=== PATIENT | male | born 1980 | race Caucasian/White ===

== ENCOUNTER 2023-12-12 19:41 | Inpatient (IN) | payer BC, SELFPAY ==
[2023-12-12] VITALS (22 sets, daily range): BP systolic 151–195; BP diastolic 96–118; PULSE 90–122; RESP 15–22; TEMP 36.4–38; O2SAT 92–96
--- NOTE | 2023-12-12 19:45 | DI.CT_ITS ---
Exam(s) CT ABDOMEN PELVIS W EXAM: CT ABDOMEN PELVIS W CLINICAL HISTORY: epigastric/RUQ pain. TECHNIQUE: Imaging Protocol: Axial computed tomography images with coronal and sagittal reformatted images were created and reviewed CONTRAST MATERIAL: Intravenous: Omnipaque-350 100cc Oral: None COMPARISON: No exams were available for comparison FINDINGS: VISUALIZED LUNG BASES: No nodules nor pleural effusions evident. ABDOMEN: LIVER: There is slightly prominent in size and is hypodense implying steatosis. There no discrete fo blessing hepatic lesions. No dilated intrahepatic ducts. GALLBLADDER/BILIARY: The gallbladder is distended and exhibits some mural thickening suggestive of ch olecystitis. There are no radiopaque calculi seen in the gallbladder lumen nor in the nondilated CBD . PANCREAS: No evidence of pancreatic mass nor dilatation of the pancreatic duct. SPLEEN: Spleen is not enlarged. No obvious intrasplenic lesions. Splenic and portal veins are paten t. ADRENALS: There are no significant adrenal masses. KIDNEYS:There are 3 small benign cortical cysts in the right kidney all measuring less than 1 cm. No solid renal masses. No calculi. No hydronephrosis on either side. Ureters are not dilated. No ob vious abnormality in the urinary bladder.. ABDOMINAL AORTA: Abdominal aorta is not enlarged. LYMPH NODES:There is no retroperitoneal nor paraaortic adenopathy. ABDOMINAL WALL: No evidence of significant anterior abdominal wall nor inguinal hernia. GI: There is no evidence of bowel obstruction, free air, nor abscess. PELVIS: GI: No evidence of appendicitis.No evidence of sigmoid diverticulitis. LYMPH NODES: There is no intrapelvic nor inguinal adenopathy. REPRODUCTIVE: Prostate size normal. Seminal vesicles unremarkable. URINARY BLADDER: No calculi nor obvious masses evident . FLUID: There is a small amount of free fluid in the dependent aspect of the pelvis. OSSEOUS: No fractures and no significant osseous lesions. IMPRESSION: 1. Gallbladder is distended and edematous consistent with acute cholecystitis. No obvious calcified gallstones seen in the gallbladder lumen nor in the CBD and the CBD is not dilated. Recommend follow -up gallbladder ultrasound. 2. There is a small amount of abnormal free fluid in the pelvis in this male patient, without evidenc e of appendicitis nor diverticulitis nor bowel obstruction.. Suspect that this may be related to the gallbladder pathology. RADIATION DOSE DELIVERED: 1,530.26mGy.cm Total DLP DATA REPOSITORY: All CT scans at this facility are submitted to the National Radiology Data Registry (NRDR) Dose Index Registry (DIR) with the [employer] (ACR). RADIATION OPTIMIZATION: All CT scans at this facility use at least one of these dose optimization te chniques: automated exposure control; mA and/or kV adjustment per patient size (includes targeted exa ms where dose is matched to clinical indication); or iterative reconstruction.
--- NOTE | 2023-12-12 19:51 | ED.GENADUL_ITS ---
Discharge Plan Disposition Patient Disposition: Admit to [facility] Condition: Stable Discharge Details Clinical Impression: Acute cholecystitis Primary Care Provider: None,None ED Provider: José Luis Lockwood [facility] General Date/Time Provider Initiated Documentation: 12/12/23 19:48 . HPI Narrative: 43 year-old male presents to ED today by POV/ambulating with his parents with a chief complaint of severe RUQ/epigastric abdominal pain, nausea/vomiting, seen at [facility] today, sent to ED, with onset two days ago. Quality described as severe tight upper abdominal pain, no radiation to active vomiting- did receive Zofran and IVF at [facility], endorses chills/sweats, denies cough/URI, denies black/bloody stools, is passing gas, denies hematemesis. Severity is described as 8/10. Palliating factors include zofran at [facility]. Provoking factors include nothing specific. Events leading up to the incident/Associated Symptoms: Patient denies prior abdominal surgery. Patient not anticoagulated. Related Data Allergies Allergy/AdvReac Type Severity Reaction Status Date / Time No Known Drug Allergies Allergy Mild Other (See Unverified 12/12/23 20:06 Comment) General Stated Complaint: Abd Prob SUHA: 3 Review of Systems All systems reviewed & are unremarkable except as noted in HPI and below Exam Narrative Exam Narrative: GENERAL APPEARANCE: Well-nourished, toxic, awake and alert, atraumatic, moderate acute distress. SKIN: Warm, pink, dry, intact, without rashes/lesions/ulcerations. HEAD: Normocephalic, atraumatic, normal hair distribution for gender/age. EYES: Pupils PERRLA, EOMs intact without nystagmus, normal conjunctiva, no exudates on lids/lashes. ENT: Nares patent, no circumoral cyanosis, no facial swelling NECK: Supple, trachea midline, painless cervical ROM. LUNGS/CHEST: Lungs CTA bilaterally-no rhonchi/rales/wheezes diffusely, non- labored respirations, normal A/P diameter, symmetrical expansion, no chest wall deformity HEART (CV/PV): Regular rate and rhythm- tachycardic without murmur, no peripheral edema, no JVD. ABDOMEN: Soft, non-distended, +guarding, right upper quadrant and epigastric tenderness with positive Krishnamurthy sign, no Rovsing's, no McBurney's point tenderness. MSK: Normal ROM, no swelling/deformity to bilateral UEs or LEs, moving all extremities without weakness, no cyanosis, spine midline without tenderness, normal curvature. NEURO: Mental Status AAOx4 - alert to person, place, time, events No facial droop, no forehead involvement. Motor: No focal weakness - strength 5/5 in bilateral UEs and LEs, proximal and distal, symmetric. Sensory: sensation intact to light touch globally. Gait normal: patient ambulated without ataxia into ED room. PSYCH: euthymic, cooperative, pleasant, appropriate speech Course Vital Signs Vital signs: Vital Signs Temperature 36.4 C 12/12/23 19:44 Pulse 122 H 12/12/23 19:44 Respiratory Rate 15 12/12/23 19:44 Blood Pressure 151/105 H 12/12/23 19:44 Pulse Oximetry 96 12/12/23 19:44 Temperature 36.4 C 12/12/23 19:47 Temperature Source Temporal Artery Scan 12/12/23 19:47 Pulse 122 H 12/12/23 19:47 Respiratory Rate 15 12/12/23 19:47 Respiratory Effort Normal 12/12/23 19:47 Blood Pressure 151/105 H 12/12/23 19:47 Blood Pressure Position Sitting 12/12/23 19:47 Pulse Oximetry 96 12/12/23 19:47 Oxygen Delivery Method Room Air 12/12/23 19:47 Oxygen Flow Rate 0 12/12/23 19:47 Pain Level 7 12/12/23 19:47 Medical Decision Making This dictation utilizes [id number] dictation software and may contain unedited grammatical errors. 43 y/o M presents to ED today with a chief complaint of two day onset of severe epigastric/abdominal pain, nausea/vomiting, tachycardia. Patient endorses chills/sweats. Patient takes no baseline medications, and denies any history of abdominal surgeries. Patients' medical history: Negative, otherwise healthy. Family and social history: Lives with his parents. Pertinent exam findings / vital signs include severe epigastric/right upper quadrant tenderness, positive Krishnamurthy sign, no Rovsing's, tachycardic, lungs CTA, toxic vital signs, neuro intact. Differential / pathologies of concern include gallstone pancreatitis, cholangitis, choledocholithiasis, sepsis, gastritis, SBO, perforated viscus, pancreatitis, hepatitis. Diagnostic studies of: -CBC, BMP, liver panel, CRP/ESR, lactate, procalcitonin, lipase, magnesium, troponin, CT abdomen pelvis with contrast, blood cultures, urinalysis. -CBC shows leukocytosis of 24 -Lactate 1.9, procalcitonin 0.4 - likely sepsis -Liver Panel shows bilirubin of 5.0, conjugated 1.8, ALT 137, AST 159 -CRP 10.9 -Lipase WNL -CT shows acute cholecystitis - clarifying by phone the measurement of CBD due to significantly elevated bilirubin -V rad radiologist states 4 mm with no radiopaque stones, discussed with Dr. Schuler of general surgery, will likely perform MRCP tomorrow morning, likely cholecystectomy. Interventions of: -IVF, IV APAP, IV Ketorlac, IV Zosyn. ED Course/Assessment/Plan: 43-year-old male with no major medical history presents with severe sudden onset epigastric right upper quadrant tenderness with nausea and vomiting, seen at [facility], given 1 L of fluids there, CT shows acute cholecystitis, he does have bilirubin of 5.0 and conjugated bilirubin of 1.8 but no radiopaque stone seen in the common bile duct and no dilatation seen. I discussed with general surgery Dr. Schuler who admitted the patient, will likely perform MRCP in the morning. Patient's pain was well-controlled with IV Tylenol and Toradol here in the department, I loaded him with IV Zosyn. Findings not consistent with primary biliary cholangitis, choledocholithiasis. Disposition of acute cholecystitis. Patient verbalized understanding of the plan and return to ED criteria and engaged in shared decision making. Medical Records Medical records reviewed: Yes I reviewed the patient's medical records. Medical records narrative: No records in our EMR or External [place] Records Search Imaging Data Radiologic Study: Attestation: I personally reviewed and interpreted this imaging study as follows: Imaging: CT Scan Radiologist's impression: Exam(s) Addendum created by Tiago Severino MD on 12/12/2023 9:48:27 PM EDT: Common bile duct is difficult to visualize as it is nondilated but measures approximately 4 mm in greatest diameter. Findings were discussed with JOSÉ LUIS LOCKWOOD at 12/12/2023 9:48 PM EDT. Initial report created on 12/12/2023 9:35:30 PM EDT: PROCEDURE INFORMATION: Exam: CT Abdomen And Pelvis With Contrast Exam date and time: 12/12/2023 8:55 PM Age: 43 years old Clinical indication: Abdominal pain; Epigastric TECHNIQUE: Imaging protocol: Computed tomography of the abdomen and pelvis with contrast. Contrast material: OMNIPAQUE 350; Contrast volume: 100 ml; Contrast route: INTRAVENOUS (IV); COMPARISON: No relevant prior studies available. FINDINGS: Liver: Liver is diffusely fatty but otherwise unremarkable. Gallbladder and bile ducts: Gallbladder is distended with diffuse gallbladder wall thickening suggesting acute cholecystitis. No calcified gallstones or significant biliary ductal dilation evident. Pancreas: Normal. No ductal dilation. Spleen: Normal. No splenomegaly. Adrenal glands: Normal. No mass. Kidneys and ureters: Small right renal cortical cysts noted and appears simple. Left kidney is unremarkable. No hydronephrosis. Stomach and bowel: Unremarkable. No obstruction. No mucosal thickening. Appendix: The appendix is visualized and appears normal. Intraperitoneal space: Unremarkable. No free air. No significant fluid collection. Vasculature: Unremarkable. No abdominal aortic aneurysm. Lymph nodes: Unremarkable. No enlarged lymph nodes. Urinary bladder: Unremarkable as visualized. Reproductive: Unremarkable as visualized. Bones/joints: Mild degenerative changes of the lumbar spine and sacroiliac joints. No acute fracture. Soft tissues: Unremarkable. IMPRESSION: Findings suggesting acute cholecystitis. Dictated and Authenticated by: Tiago Severino MD. Ordering:BRENT Ordonez MD Lab Data Lab results reviewed: Yes I reviewed the patient's lab results. Labs: 12/12/23 21:18 Blood Blood Culture - Pending 12/12/23 20:15 Blood Blood Culture - Pending Laboratory Tests Range/Units 12/12/23 20:05 WBC (4.4-10.8) 10^3/uL 23.83 H RBC (4.36-5.78) 10^6/uL 6.01 H Hgb (13.5-17.5) g/dL 17.4 Hct (40.0-50.0) % 50.9 H MCV (80-95) fL 85 MCH (27.0-33.0) pg 29.0 MCHC (32.0-36.0) % 34.2 RDW (11.8-14.1) % 13.3 Plt Count (130-400) 10^3/uL 387 MPV (8.0-11.0) fL 10.6 Immature Gran % % 0.5 Neutrophils % % 85.3 Lymphocytes % % 6.7 Monocytes % % 7.0 Eosinophils % % 0.0 Basophils % % 0.5 Nucleated RBC % (0.0-0.3) % 0.0 Absolute Neutrophils (1.2-6.7) 10^3/uL 20.33 H Absolute Lymphocytes (1.2-3.4) 10^3/uL 1.60 Absolute Monocytes (0.1-0.8) 10^3/uL 1.67 H Absolute Eosinophils (0.0-0.7) 10^3/uL 0.00 Absolute Basophils (0.0-0.2) 10^3/uL 0.12 RBC Morphology Normal VBG Lactate (0.6-1.4) mmol/L 1.9 H Sodium (136-145) mmol/L 137 Potassium (3.5-5.1) mmol/L 3.7 Chloride (98-107) mmol/L 100 Carbon Dioxide (21.0-32.0) mmol/L 25.0 Anion Gap (3-11) mmol/L 12.0 H BUN (7-18) mg/dL 13 Creatinine (0.70-1.30) mg/dL 1.2 Est GFR (CKD-EPI 2020) (mL/min/1.73m2) 76.00 Glucose (74-106) mg/dL 151 H Calcium (8.5-10.1) mg/dL 9.0 Magnesium (1.8-2.4) mg/dL 1.6 L Total Bilirubin (0.2-1.0) mg/dL 5.0 H Conjugated Bilirubin (0.0-0.2) mg/dL 1.8 H AST (15-37) U/L 159 H ALT (16-63) U/L 137 H Alkaline Phosphatase (46-116) U/L 115 Troponin I (< or =60) ng/L < 50 C-Reactive Protein (<or=0.5) mg/dL 10.94 H Total Protein (6.4-8.2) g/dL 9.0 H Albumin (3.4-5.0) g/dL 4.1 Lipase (16-77) U/L 27 Procalcitonin ng/mL 0.4 Quality:SDOH Health Related Social Needs: No Data to Display PFSH All Active Problems (Updated 12/12/23 @ 21:51 by ZUNILDA Linder) Acute cholecystitis (Acute) Social History Smoking risk assessment performed?: No
[2023-12-12 20:12] LABS: Lactate 1.9 mmol/L (0.6-1.4)
[2023-12-12 20:13] LABS: Abs Immature Grans 0.11 10^3/uL (0.0-0.06); Basophils % 0.5 %; HCT 50.9 % (40.0-50.0); HGB 17.4 g/dL (13.5-17.5); Immature Grans % 0.5 %; Lymphocytes % 6.7 %; MCHC 34.2 % (32.0-36.0); MCV 85 fL (80-95); MPV 10.6 fL (8.0-11.0); Neutrophils % 85.3 %; Platelet Count 387 10^3/uL (130-400); RBC 6.01 10^6/uL (4.36-5.78); RDW 13.3 % (11.8-14.1); RDW-SD 41.2 fL; WBC 23.83 10^3/uL (4.4-10.8)
[2023-12-12] MEDS: ACETAMINOPHEN 1,000 MG/100 ML BTL 400 MG IVPB (20:15)
[2023-12-12 20:16] LABS: Absolute Basophil Count 0.12 10^3/uL (0.0-0.2); Absolute Monocyte Count 1.67 10^3/uL (0.1-0.8); Absolute Neutrophil Count 20.33 10^3/uL (1.2-6.7)
[2023-12-12] MEDS: Ketorolac 15 MG/ML VIAL IVP (20:16)
[2023-12-12 20:28] LABS: Diff Comment Diff Reviewed; RBC Morphology Normal
[2023-12-12 20:35] LABS: C-Reactive Protein 10.94 mg/dL (<or=0.5); Lipase 27 U/L (16-77); Troponin I < 50 ng/L (< or =60)
[2023-12-12 20:40] LABS: ALT 137 U/L (16-63); AST 159 U/L (15-37); Albumin 4.1 g/dL (3.4-5.0); Alkaline Phosphatase 115 U/L (46-116); BUN 13 mg/dL (7-18); Bilirubin, Direct 1.8 mg/dL (0.0-0.2); CREATININE 1.2 mg/dL (0.70-1.30); Chloride 100 mmol/L (98-107); Glucose 151 mg/dL (74-106); Magnesium 1.6 mg/dL (1.8-2.4); Potassium 3.7 mmol/L (3.5-5.1); Sodium 137 mmol/L (136-145)
[2023-12-12] MEDS: Omnipaque 350 MG/ML 100 ML BTL IJ (20:41)
[2023-12-12] MEDS: Normal Saline Flush 10 ML SYR IVP (20:42)
[2023-12-12] MEDS: Normal Saline - Diluent 50 ML VIAL IJ (20:42)
[2023-12-12 20:45] LABS: Procalcitonin 0.4 ng/mL
[2023-12-12] MEDS: Normal Saline 1,000 ML 1000 ML IV ×2 (20:54→21:55)
--- NOTE | 2023-12-12 21:36 | DI.VRAD_ITS ---
Addendum created by Tiago Severino MD on 12/12/2023 9:48:27 PM EDT: Common bile duct is difficult to visualize as it is nondilated but measures approximately 4 mm in greatest diameter. Findings were discussed with MARY LOCKWOOD at 12/12/2023 9:48 PM EDT. Initial report created on 12/12/2023 9:35:30 PM EDT: PROCEDURE INFORMATION: Exam: CT Abdomen And Pelvis With Contrast Exam date and time: 12/12/2023 8:55 PM Age: 43 years old Clinical indication: Abdominal pain; Epigastric TECHNIQUE: Imaging protocol: Computed tomography of the abdomen and pelvis with contrast. Contrast material: OMNIPAQUE 350; Contrast volume: 100 ml; Contrast route: INTRAVENOUS (IV); COMPARISON: No relevant prior studies available. FINDINGS: Liver: Liver is diffusely fatty but otherwise unremarkable. Gallbladder and bile ducts: Gallbladder is distended with diffuse gallbladder wall thickening suggesting acute cholecystitis. No calcified gallstones or significant biliary ductal dilation evident. Pancreas: Normal. No ductal dilation. Spleen: Normal. No splenomegaly. Adrenal glands: Normal. No mass. Kidneys and ureters: Small right renal cortical cysts noted and appears simple. Left kidney is unremarkable. No hydronephrosis. Stomach and bowel: Unremarkable. No obstruction. No mucosal thickening. Appendix: The appendix is visualized and appears normal. Intraperitoneal space: Unremarkable. No free air. No significant fluid collection. Vasculature: Unremarkable. No abdominal aortic aneurysm. Lymph nodes: Unremarkable. No enlarged lymph nodes. Urinary bladder: Unremarkable as visualized. Reproductive: Unremarkable as visualized. Bones/joints: Mild degenerative changes of the lumbar spine and sacroiliac joints. No acute fracture. Soft tissues: Unremarkable. IMPRESSION: Findings suggesting acute cholecystitis. Dictated and Authenticated by: Tiago Severino MD. Ordering:BRENT Ordonez MD
[2023-12-12] MEDS: PIPERACILLIN/TAZO 4.5 GM in Normal Saline 100 ML IVPB (21:55)
[2023-12-12 22:01] LABS: Bilirubin Negative (Negative); Blood Trace-intact (Negative); Clarity Clear (Clear); Glucose Negative (Negative); Ketones Trace mg/dL (Negative); Leukocyte Esterase Negative (Negative); Nitrite Negative (Negative)
[2023-12-12 22:08] LABS: Epithelial Cells Rare HPF (Negative); WBC 0-2 HPF (0-5)
[2023-12-12 22:09] LABS: Bacteria Negative HPF (Negative); C & S Indicated? No; Crystals Negative HPF (Negative); Mucus Negative (Negative)
[2023-12-12] MEDS: MORPHine 2 MG/ML SYR IVP ×2 (22:20→23:22)
[2023-12-12] MEDS: DEXTROSE 5%-0.45% SALINE 1,000 ML 125 ML IV (23:23)
[2023-12-12] MEDS: FAMOTIDINE 20 MG in Normal Saline 100 ML 400 MG IVPB (23:25)
--- NOTE | 2023-12-13 | DI.MRI_ITS ---
Exam(s) MR ABDOMEN WO EXAM: MR ABDOMEN WO CLINICAL HISTORY: acute isael/elevated T fernando TECHNIQUE: Multiplanar multisequence MRI was performed without IV contrast. MRCP also performed COMPARISON: CT CT ABDOMEN PELVIS W from 12/12/2023 FINDINGS: VISUALIZED LUNG BASES: No pleural effusions evident. There is no ascites evident. LIVER: Liver size is slightly prominent. There is signal dropout on out of phase sequences consisten t with steatosis. There no discrete focal hepatic lesions. BILIARY: There are multiple gallstones seen in the gallbladder lumen. Gallbladder is moderately dist ended and gallbladder wall is thickened-edematous, these findings consistent with acute cholecystitis . The size of the gallstones in the gallbladder lumen is variable, largest measuring 1.7 cm and the smallest measuring 0 point 5 cm. The CBD is not dilated. And there are no obvious calculi in the CB D. PANCREAS: There is no evidence of pancreatic mass nor dilatation pancreatic duct. However, there is a small amount of fluid around the pancreatic tail consistent with an element of pancreatitis. this w ould also explain the fluid seen in the pelvis on yesterday's CT scan (abdominal MRI scan does not in clude pelvis in the field of view) SPLEEN: Spleen is not enlarged and there are no intrasplenic lesions. ADRENALS: There are no significant adrenal masses. KIDNEYS: There are 3 small benign cortical cysts in theright kidney all measuring less than 1 cm and not requiring follow-up. No solid lesions in either kidney. No hydronephrosis. ABDOMINAL AORTA: Not enlarged and there is no significant para-aortic adenopathy. ANTERIOR ABDOMINAL WALL/GI: There is no evidence of significant anterior abdominal wall hernia in the field of view of this study.Is no evidence of obvious bowel obstruction. OSSEOUS: There are no lytic osseous lesions in the field of view of this study. IMPRESSION: 1. Findings are consistent with cholelithiasis and acute cholecystitis. There are multiple gallstone s seen within the distended gallbladder lumen, these gallstones more evident on MRI than on CT scan ( as they are not calcified). Gallbladder wall is edematous, as also evident on yesterday's CT scan. 2. The CBD is not dilated and there are no dilated intrahepatic ducts. 3. There is a wisp of fluid adjacent to the tail the pancreas which probably indicates an element of pancreatitis here. This would also explain the free fluid in the lower pelvis seen on yesterday's CT scan (abdominal MRI field of view does not include the pelvis). The pancreatic duct is not dilated. There is also no evidence of mass in the pancreas. DATA REPOSITORY:
[2023-12-13] MEDS: MORPHine 2 MG/ML SYR IVP ×4 (00:33→09:51)
[2023-12-13] MEDS: ACETAMINOPHEN 1,000 MG/100 ML BTL 400 MG IVPB ×4 (01:26→19:31)
[2023-12-13] MEDS: MAGNESIUM SULFATE 2 GM/50 ML BAG IVINF (02:32)
[2023-12-13] MEDS: Normal Saline Flush 10 ML SYR IVP ×4 (03:18→19:34)
[2023-12-13] MEDS: PIPERACILLIN/TAZO 3.375 GM in Normal Saline 50 ML IVPB ×4 (04:43→23:10)
[2023-12-13 06:39] LABS: Abs Immature Grans 0.09 10^3/uL (0.0-0.06); Absolute Monocyte Count 1.86 10^3/uL (0.1-0.8); Basophils % 0.4 %; Eosinophils % 0.1 %; HCT 46.2 % (40.0-50.0); HGB 16.3 g/dL (13.5-17.5); Immature Grans % 0.5 %; Lymphocytes % 2.8 %; MCH 29.4 pg (27.0-33.0); MCHC 35.3 % (32.0-36.0); MCV 83 fL (80-95); MPV 10.9 fL (8.0-11.0); Monocytes % 9.6 %; Neutrophils % 86.6 %; Platelet Count 297 10^3/uL (130-400); RBC 5.55 10^6/uL (4.36-5.78); RDW 13.5 % (11.8-14.1); RDW-SD 41.2 fL; WBC 19.33 10^3/uL (4.4-10.8)
[2023-12-13 06:40] LABS: Absolute Basophil Count 0.08 10^3/uL (0.0-0.2); Absolute Eosinophil Count 0.02 10^3/uL (0.0-0.7); Absolute Lymphocyte Count 0.54 10^3/uL (1.2-3.4); Absolute Neutrophil Count 16.74 10^3/uL (1.2-6.7)
[2023-12-13 06:47] LABS: INR 1.2 (0.9-1.1); Prothrombin Time 11.9 sec (9.1-11.1)
[2023-12-13 06:57] LABS: ALT 152 U/L (16-63); AST 113 U/L (15-37); Albumin 3.4 g/dL (3.4-5.0); Alkaline Phosphatase 109 U/L (46-116); Anion Gap 12.4 mmol/L (3-11); BUN 12 mg/dL (7-18); C-Reactive Protein 16.18 mg/dL (<or=0.5); CO2 23.6 mmol/L (21.0-32.0); Calcium 8.4 mg/dL (8.5-10.1); Chloride 103 mmol/L (98-107); Estimated GFR 94.59 (mL/min/1.73m2); Glucose 142 mg/dL (74-106); Lipase 21 U/L (16-77); Potassium 3.9 mmol/L (3.5-5.1); Sodium 139 mmol/L (136-145); Total Protein 7.8 g/dL (6.4-8.2)
[2023-12-13 07:18] LABS: Diff Comment Agrees w/ Instrument; RBC Morphology Normal
[2023-12-13 07:46] VITALS: BP 164/106; PULSE 103; RESP 22; TEMP 38.1; O2SAT 92
[2023-12-13] MEDS: LORazepam 1 MG TAB PO (10:17)
[2023-12-13] MEDS: FAMOTIDINE 20 MG in Normal Saline 100 ML 400 MG IVPB ×2 (10:18→22:46)
[2023-12-13] MEDS: DEXTROSE 5%-0.45% SALINE 1,000 ML 125 ML IV ×2 (10:28→21:00)
[2023-12-13 11:04] VITALS: BP 172/112; PULSE 106; RESP 20; TEMP 37.7; O2SAT 96
[2023-12-13 12:39] VITALS: BP 164/86; PULSE 105; TEMP 38.3; O2SAT 95
--- NOTE | 2023-12-13 13:41 | PHA.REVIEW2 ---
Pharmacy Admission Review Admission Clinical Review Admission Pharmacy Review: No Known Drug Allergies Allergy (Mild, Unverified 12/12/23 20:06) Other (See Comment) Resuscitation Status Full Code Height 6 ft 3 in Weight 146.057 kg Comments Comments/Follow Ups: Once enoxaparin is resumed, change to q12h dosing due to BMI of 40.2 Pharmacy Admission Review Renal Dosing Renal Dosing: BUN 12 mg/dL (7-18) 12/13/23 06:28 Creatinine 1.0 mg/dL (0.70-1.30) 12/13/23 06:28 Medications needing adjustments: Reviewed (CrCl 143.98 mL/min) Anticoagulation Anticoagulation: Hgb 16.3 g/dL (13.5-17.5) 12/13/23 06:28 Hct 46.2 % (40.0-50.0) 12/13/23 06:28 Plt Count 297 10^3/uL (130-400) 12/13/23 06:28 INR 1.2 (0.9-1.1) H 12/13/23 06:28 Creatinine 1.0 mg/dL (0.70-1.30) 12/13/23 06:28 DVT Prophylaxis: Reviewed (Currently on hold due to possible surgery - increase to q12h when resumed due to BMI of 40.2) Medications: Enoxaparin (40mg daily) Opiate Usage Evaluate Pain Scale/Pains Meds: Reviewed (PRN morphine) Scheduled Bowel Reg ordered if on Opiates?: No Relevant Labs Relevant Labs: Sodium 139 mmol/L (136-145) 12/13/23 06:28 Potassium 3.9 mmol/L (3.5-5.1) 12/13/23 06:28 Chloride 103 mmol/L (98-107) 12/13/23 06:28 Magnesium 1.6 mg/dL (1.8-2.4) L 12/12/23 20:05 C-Reactive Protein 16.18 mg/dL (<or=0.5) H 12/13/23 06:28 Electrolytes, C-Reactive P, ESR: Reviewed (INR 1.2, glucose 142) Cardiac Review Cardiac Review: Troponin I < 50 ng/L (< or =60) 12/12/23 20:05 Blood Pressure 164/86 1239 Blood Pressure 172/112 1104 Blood Pressure 164/106 0746 BP, HR, EF%: Reviewed (HR 105 and BP 164/86) QTc Review QTc: Reviewed (No EKG on file) IV to PO Switch IV Medications: Reviewed (Acetaminophen, famotidine, ondansetron and Zosyn - currently NPO pending surgery) Home Meds Home Med List reviewed: Reviewed Current Meds Current Medication Order Review: Reviewed Pharmacy Antibiotic Review Relevant Labs: Relevant Labs 12/13/23 12/12/23 06:28 20:05 C-Reactive Protein 16.18 H 10.94 H Procalcitonin 0.4 WBC 19.33 10^3/uL (4.4-10.8) H 12/13/23 06:28 Procalcitonin 0.4 ng/mL 12/12/23 20:05 Temperature 38.3 C 1239 Temperature 37.7 C 1104 Temperature 38.1 C 0746 Pharmacy Antibiotic Activity: C/S review and Reviewed, no change Comments: Patient is on Zosyn 3.375mg q6h, day 1 for acute cholecystitis. WBC decreased from 20.33 and has had elevated temperature all morning. Blood cultures are pending. Comments Comments/Follow Ups: Once enoxaparin is resumed, change to q12h dosing due to BMI of 40.2
--- NOTE | 2023-12-13 15:20 | INITIAL_ITS ---
Care Management Initial Assmt Initial Assessment REASON FOR HOSPITALIZATION:: Acute Cholecystitis PREVIOUS FUNCTIONAL STATUS/SOCIAL/FAMILY SUPPORTS:: David lives in [place] with his father and step-mother. He moved to the area from [place] 2 years ago. David is active and independent at baseline. He drives and is employed by [employer] in [place]. CURRENT FUNCTIONAL STATUS:: David was laying in bed with his father at his bedside when CM met with him. He drifts in and out of sleep during our conversation. He says is well controlled at the moment. ADVANCE DIRECTIVES:: None on file Has patient been provided with info about the portal/API?: Yes Did the patient sign up for the portal?: No CODE STATUS:: Full Code INSURANCE COVERAGE / FINANCIAL ISSUES:: BC/BS out of state CURRENT HOME/COMMUNITY SERVICES/EQUIPMENT:: None PRIMARY CARE PHYSICIAN:: None, CM provided pt will list of local PCP's. POTENTIAL DISCHARGE NEEDS:: Work letter, follow up appointments, discharge plan of care, Tdoc follow up PATIENT/FAMILY EDUCATION NEEDS:: Review discharge instructions, limitations, medications and plan to follow up with community providers. Discuss ask me three and goals of self care. ANTICIPATED BARRIERS TO DISCHARGE:: None identified TRANSPORTATION:: Via private vehicle with father PLAN:: David requires additional medical work up for acute cholecystitis. Anticipate he will discharge home when medically cleared by MD. He will follow [facility] with [facility], [facility] and plan of care as instructed. No new services are anticipated at this time. CM will follow and access discharge planning needs. PFSH All Active Problems Acute cholecystitis (Acute) Social History Smoking risk assessment performed?: No Housing: house SDOH(Care Management) Screening Will the Patient Participate in the Screening?: Yes Do you worry about having a steady place to live?: no Problems where you live: no known problems In the past 12 months, have you had to go without electric, gas, oil or water in your home?: no Have you or anyone in your house had to go without enough food to eat?: no Has lack of transportation kept you from medical appointments or from doing things needed for daily living?: no Has anyone in your support network made you feel unsafe for any reason?: no
[2023-12-13 16:46] VITALS: BP 156/104; PULSE 94; RESP 20; TEMP 37.3; O2SAT 95
--- NOTE | 2023-12-13 17:57 | HPE_ITS ---
Date of service: 12/13/23 Time of Service: 17:57 Assessment and Plan Assessment and plan (1) Acute cholecystitis: Status: Acute Assessment and plan: The history and imaging are certainly consistent with acute cholecystitis. And the MRCP shows no evidence of any choledocholithiasis. At this point, given the duration of his symptoms, and his improvement from yesterday into today, I think we can continue with a trial of nonoperative management here, and see if the antibiotics and resuscitation are enough to get him through the acute phase of the cholecystitis. Regardless, he will eventually need to have his gallbladder removed. For tonight, we will continue with antibiotics. I will check LFTs and a CBC again tomorrow, and reassess the exam. If there is any signs of decompensation, then obviously we will move to a more urgent cholecystectomy History of Present Illness History of Present Illness Chief Complaint: Abdominal pain with nausea and vomiting Narrative: Sanjeev is 43 years old. He comes to the emergency department yesterday after being referred there by urgent care. He presented to the urgent care with a chief complaint of nausea and vomiting associated with approximately 2 days of abdominal pain that acutely worsened yesterday. He described it as sharp and stabbing in the mid epigastrium and radiating towards the right upper quadrant and right back. In the ER, he was found to have elevated liver function test, as well as a leukocytosis. He was started on antibiotics and underwent CT scan of the abdomen and pelvis that demonstrated acute cholecystitis. Given the elevated liver function test, he was admitted, and underwent an MRCP earlier today. He denies any significant past medical history. He denies any abdominal surgery. He denies any allergies. He takes no medications. Review of Systems Constitutional Constitutional: Denies body ache(s), Denies fever(s) and Reports poor appetite Eyes Eyes: Reports system reviewed and no additional complaints, except as documented ENT Ears, Nose, Mouth, and Throat: Reports system reviewed and no additional complaints, except as documented Cardiovascular Cardiovascular: Denies chest pain and Denies dyspnea Respiratory Respiratory: Denies chest congestion, Denies cough and Denies dyspnea Gastrointestinal Gastrointestinal: Reports abdominal pain, Denies change in stool character, Reports nausea and Reports vomiting Genitourinary Genitourinary: Reports system reviewed and no additional complaints, except as documented Musculoskeletal Musculoskeletal: Reports system reviewed and no additional complaints, except as documented Neurologic Neurologic: Reports system reviewed and no additional complaints, except as documented Psychiatric Psychiatric: Reports system reviewed and no additional complaints, except as documented PFSH All Active Problems Acute cholecystitis (Acute) Social History Smoking risk assessment performed?: No Housing: house Meds Allergies and Home Medications Allergies Allergy/AdvReac Type Severity Reaction Status Date / Time No Known Drug Allergies Allergy Mild Other (See Unverified 12/12/23 20:06 Comment) Exam Const General: cooperative and comfortable Orientation: awake HENMT Head: normal to inspection Eyes General: appearance normal, both eyes and all related structures Neck Neck: normal visual inspection, full ROM and no lymphadenopathy Resp Effort & Inspection: normal respiratory effort Auscultation: clear to auscultation bilaterally Cardio Jugular venous pressure: no JVD Rate: regular rate Rhythm: regular rhythm GI Inspection: normal to inspection and non-distended Palpation: soft, no guarding and tender Percussion: normal to percussion Results Labs 12/13/23 06:28 12/13/23 06:28 Labs: Laboratory Results - last 24 hr 12/12/23 12/12/23 12/13/23 20:05 21:50 06:28 WBC 23.83 H 19.33 H RBC 6.01 H 5.55 Hgb 17.4 16.3 Hct 50.9 H 46.2 MCV 85 83 MCH 29.0 29.4 MCHC 34.2 35.3 RDW 13.3 13.5 Plt Count 387 297 MPV 10.6 10.9 Immature Gran % 0.5 0.5 Neutrophils % 85.3 86.6 Lymphocytes % 6.7 2.8 Monocytes % 7.0 9.6 Eosinophils % 0.0 0.1 Basophils % 0.5 0.4 Nucleated RBC % 0.0 0.0 Absolute Neutrophils 20.33 H 16.74 H Absolute Lymphocytes 1.60 0.54 L Absolute Monocytes 1.67 H 1.86 H Absolute Eosinophils 0.00 0.02 Absolute Basophils 0.12 0.08 RBC Morphology Normal Normal PT 11.9 H INR 1.2 H VBG Lactate 1.9 H Sodium 137 139 Potassium 3.7 3.9 Chloride 100 103 Carbon Dioxide 25.0 23.6 Anion Gap 12.0 H 12.4 H BUN 13 12 Creatinine 1.2 1.0 Est GFR (CKD-EPI 2020) 76.00 94.59 Glucose 151 H 142 H Calcium 9.0 8.4 L Magnesium 1.6 L Total Bilirubin 5.0 H 9.0 H Conjugated Bilirubin 1.8 H AST 159 H 113 H ALT 137 H 152 H Alkaline Phosphatase 115 109 Troponin I < 50 C-Reactive Protein 10.94 H 16.18 H Total Protein 9.0 H 7.8 Albumin 4.1 3.4 Lipase 27 21 Procalcitonin 0.4 Urine Color Yellow Urine Clarity Clear Urine pH 7.0 Ur Specific [place] 1.010 Urine Protein Negative Urine Ketones Trace H Urine Blood Trace-intact H Urine Nitrite Negative Urine Bilirubin Negative Urine Urobilinogen 2.0 H Ur Leukocyte Esterase Negative Urine RBC 5-10 H Urine WBC 0-2 Ur Epithelial Cells Rare Urine Crystals Negative Urine Bacteria Negative Urine Mucus Negative Ur Culture Indicated? No Urine Glucose Negative Last Vital Signs Temp 99.1 F 12/13/23 16:46 Pulse 94 H 12/13/23 16:46 Resp 20 12/13/23 16:46 BP 156/104 H 12/13/23 16:46 Pulse Ox 95 12/13/23 16:46 Time Spent Time spent with Patient: >75 minutes Time was spent: preparing to see the patient(eg.review tests), obtaining and/or reviewing separately otained hiistory, ordering medications,tests, procedures, indepentently interpreting results and counseling the patient
[2023-12-13 22:54] VITALS: BP 159/94; PULSE 101; RESP 20; TEMP 38.9; O2SAT 98
[2023-12-14] MEDS: ACETAMINOPHEN 1,000 MG/100 ML BTL 400 MG IVPB ×4 (02:32→21:49)
[2023-12-14] MEDS: PIPERACILLIN/TAZO 3.375 GM in Normal Saline 50 ML IVPB ×3 (04:35→15:55)
[2023-12-14 06:44] LABS: MCH 29.1 pg (27.0-33.0); MCHC 34.1 % (32.0-36.0); MCV 85 fL (80-95); MPV 10.9 fL (8.0-11.0); Platelet Count 241 10^3/uL (130-400); RBC 5.15 10^6/uL (4.36-5.78); RDW 13.9 % (11.8-14.1); RDW-SD 43.2 fL; WBC 10.79 10^3/uL (4.4-10.8)
[2023-12-14 07:01] LABS: ALT 121 U/L (16-63); AST 146 U/L (15-37); Albumin 2.8 g/dL (3.4-5.0); Alkaline Phosphatase 113 U/L (46-116); BUN 11 mg/dL (7-18); Bilirubin, Direct 5.4 mg/dL (0.0-0.2); Bilirubin, Total 7.4 mg/dL (0.2-1.0); Calcium 8.5 mg/dL (8.5-10.1); Chloride 105 mmol/L (98-107); Estimated GFR 94.59 (mL/min/1.73m2); Glucose 104 mg/dL (74-106); Potassium 3.7 mmol/L (3.5-5.1); Sodium 139 mmol/L (136-145); Total Protein 7.2 g/dL (6.4-8.2)
[2023-12-14] MEDS: DEXTROSE 5%-0.45% SALINE 1,000 ML 125 ML IV ×2 (08:08→16:54)
[2023-12-14 08:12] VITALS: BP 142/96; PULSE 94; RESP 17; TEMP 37.8; O2SAT 97
[2023-12-14] MEDS: Normal Saline Flush 10 ML SYR IVP ×2 (08:39→21:52)
[2023-12-14] MEDS: FAMOTIDINE 20 MG in Normal Saline 100 ML 400 MG IVPB ×2 (10:16→22:52)
[2023-12-14 14:06] VITALS: BP 152/99; PULSE 86; RESP 18; TEMP 37.3; O2SAT 96
--- NOTE | 2023-12-14 14:11 | CMPROGNOTE_ITS ---
Date of service: 12/14/23 Time of Service: 14:11 Care Management Progress Note Progress Note Text Progress Note Text: S/O: David was sitting up in his chair when CM met with him. He stated that he is waiting to hear the next steps from MD when they are available. He reported that he will need to have his gallbladder out, but he is unsure if that will happen during this hospitalization, or if he will return home and have the surgery done as an outpatient. Per MD report, David's diet will be advanced and labs will be rechecked in the morning. If he continues to improve, he will likely return home tomorrow. He is independent in the community and does not require community services at this time. CM will continue to follow. A: David is a 43 year old male admitted to [facility] on 12/12/23 for acute cholecystitis. P: Anticipate David will return home once medically cleared. He will be driven home via private vehicle by family. CM will coordinate a PCP follow up with the supervising floorperson provider. He will follow up with surgical services and his discharge plan of care. CM will continue to follow. SDOH(Care Management) Screening Will the Patient Participate in the Screening?: Yes Do you worry about having a steady place to live?: no Problems where you live: no known problems In the past 12 months, have you had to go without electric, gas, oil or water in your home?: no Have you or anyone in your house had to go without enough food to eat?: no Has lack of transportation kept you from medical appointments or from doing things needed for daily living?: no Has anyone in your support network made you feel unsafe for any reason?: no
[2023-12-14 15:08] VITALS: BP 147/98; PULSE 82; RESP 17; TEMP 37.3; O2SAT 97
--- NOTE | 2023-12-14 15:10 | CHAPLAIN ---
David was sitting up in the recliner when I visited. He was very pleasant and easily engaged in a conversation. David said he's expecting his dad and stepmom to visit today. They all live together in [place]. He's looking forward to their visit. I explained my role and offered support.
--- NOTE | 2023-12-14 16:56 | W.PM.PROGNOT ---
Date of Service Date of service: 12/14/23 Time of Service: 16:56 Assessment and Plan Assessment and plan (1) Acute cholecystitis: Status: Acute Assessment and plan: David seems to be doing much better with antibiotic therapy for acute cholecystitis. His LFTs are still quite out of the ordinary, but seem to be improving compared to yesterday. I will advance his diet up to a fat restricted diet tonight, and repeat his LFTs tomorrow. Also switch him over from intravenous antibiotics to an enteral regimen. If he remains asymptomatic tomorrow, and his labs continue to improve, then we will persist with nonoperative management, and plan for short interval elective cholecystectomy as an outpatient. Subjective Subjective Interval history since last seen: Child looks far better today compared to yesterday. He has had some fever last night, some low-grade temperatures throughout the day, but has been tolerating liquids with no nausea or vomiting, and he is essentially pain-free. Exam GI Other: His abdomen is soft and nondistended. He has bowel sounds. He is really minimal tenderness to deep palpation over the right upper quadrant. Objective Last Vital Signs Temp 99.1 F 12/14/23 15:08 Pulse 82 12/14/23 15:08 Resp 17 12/14/23 15:08 BP 147/98 H 12/14/23 15:08 Pulse Ox 97 12/14/23 15:08 Laboratory Results - last 24 hr 12/12/23 12/14/23 20:05 06:22 WBC 10.79 RBC 5.15 Hgb 15.0 Hct 44.0 MCV 85 MCH 29.1 MCHC 34.1 RDW 13.9 Plt Count 241 MPV 10.9 Sodium 139 Potassium 3.7 Chloride 105 Carbon Dioxide 27.0 Anion Gap 7.0 BUN 11 Creatinine 1.0 Est GFR (CKD-EPI 2020) 94.59 Glucose 104 Calcium 8.5 Total Bilirubin 7.4 H Conjugated Bilirubin 5.4 H AST 146 H ALT 121 H Alkaline Phosphatase 113 Total Protein 7.2 Albumin 2.8 L Path Cons Comment SEE COMMENT Time Spent with Patient Time Spent with Patient: 35-49 minutes Time was spent: preparing to see the patient(eg.review tests), ordering medications,tests, procedures, indepentently interpreting results and counseling the patient
[2023-12-14] MEDS: Ciprofloxacin 500 MG TAB PO (21:48)
[2023-12-14] MEDS: Enoxaparin 40 MG/0.4 ML SYR SC (21:55)
[2023-12-14 22:02] VITALS: BP 154/106; PULSE 88; RESP 18; O2SAT 96
[2023-12-15] MEDS: ACETAMINOPHEN 1,000 MG/100 ML BTL 400 MG IVPB ×3 (02:30→14:30)
[2023-12-15 02:40] VITALS: BP 150/106; PULSE 85; RESP 18; TEMP 37; O2SAT 95
[2023-12-15 06:57] LABS: HCT 47.4 % (40.0-50.0); MCH 28.8 pg (27.0-33.0); MCHC 33.8 % (32.0-36.0); MCV 85 fL (80-95); MPV 10.9 fL (8.0-11.0); Platelet Count 287 10^3/uL (130-400); RBC 5.56 10^6/uL (4.36-5.78); RDW 13.6 % (11.8-14.1); RDW-SD 42.6 fL; WBC 9.91 10^3/uL (4.4-10.8)
[2023-12-15 07:16] LABS: ALT 137 U/L (16-63); AST 169 U/L (15-37); Albumin 2.8 g/dL (3.4-5.0); Alkaline Phosphatase 144 U/L (46-116); Bilirubin, Direct 3.7 mg/dL (0.0-0.2); Bilirubin, Total 5.1 mg/dL (0.2-1.0); Total Protein 7.5 g/dL (6.4-8.2)
[2023-12-15] MEDS: Normal Saline Flush 10 ML SYR IVP ×2 (08:19→08:33)
[2023-12-15] MEDS: Enoxaparin 40 MG/0.4 ML SYR SC (08:19)
[2023-12-15] MEDS: Ciprofloxacin 500 MG TAB PO (08:19)
[2023-12-15] MEDS: Ondansetron 4 MG/2 ML VIAL IVP (08:26)
[2023-12-15 09:24] VITALS: BP 147/106; PULSE 82; RESP 17; TEMP 36.7; O2SAT 95
[2023-12-15] MEDS: FAMOTIDINE 20 MG in Normal Saline 100 ML 400 MG IVPB (10:21)
--- NOTE | 2023-12-15 11:35 | PDOC.CMPRO ---
Date of service: 12/15/23 Time of Service: 11:35 Care Management Progress Note Progress Note Text Progress Note Text: S/O: David was sitting in his recliner eating lunch when CM met with him. He's still not feeling great and his abdomen feels tight, especially now that he had lunch. His labs are being closely monitored, LFT's remain elevated. He is waiting to hear from Surgical to find out if his gallbladder will be removed during this admission or as an outpatient. He prefers to have the procedure done while in the hospital if he has a choice. David is independent in the community and does not require community services at this time. CM will continue to follow. A: David is a 43 year old male admitted to [facility] on 12/12/23 for acute cholecystitis. P: Anticipate David will return home once medically cleared. He will be driven home via private vehicle by family. CM will coordinate a PCP follow up with the control systems drafting officer provider. He will follow up with surgical services and his discharge plan of care. CM will continue to follow. SDOH(Care Management) Screening Will the Patient Participate in the Screening?: Yes Do you worry about having a steady place to live?: no Problems where you live: no known problems In the past 12 months, have you had to go without electric, gas, oil or water in your home?: no Have you or anyone in your house had to go without enough food to eat?: no Has lack of transportation kept you from medical appointments or from doing things needed for daily living?: no Has anyone in your support network made you feel unsafe for any reason?: no
--- NOTE | 2023-12-15 15:14 | W.PM.PROGNOT ---
Date of Service Date of service: 12/15/23 Time of Service: 15:14 Assessment and Plan Assessment and plan (1) Acute cholecystitis: Status: Acute Assessment and plan: Patient denies any abdominal pain, nausea or vomiting. WBC remains WNL LFTs bumped up today, along with alk phosphatase. Tolerating fat restricted diet. Encouraged activity OOB, ambulation and pulmonary toilet. Continue Cipro BID Subjective Subjective Interval history since last seen: Patient reports that he continues to feel improvement. He denies any abdominal pain, nausea or vomiting. Denies any fevers today. Exam Const General: cooperative, healthy appearing and comfortable Orientation: alert and oriented x3 Resp Effort & Inspection: normal respiratory effort, no audible wheezes and no cough GI Inspection: normal to inspection Palpation: soft, no guarding and nontender Objective Last Vital Signs Temp 36.7 C 12/15/23 09:24 Pulse 82 12/15/23 09:24 Resp 17 12/15/23 09:24 BP 147/106 H 12/15/23 09:24 Pulse Ox 95 12/15/23 09:24 Laboratory Results - last 24 hr 12/15/23 06:35 WBC 9.91 RBC 5.56 Hgb 16.0 Hct 47.4 MCV 85 MCH 28.8 MCHC 33.8 RDW 13.6 Plt Count 287 MPV 10.9 Total Bilirubin 5.1 H Conjugated Bilirubin 3.7 H AST 169 H ALT 137 H Alkaline Phosphatase 144 H Total Protein 7.5 Albumin 2.8 L Time Spent with Patient Time Spent with Patient: <25 minutes Time was spent: preparing to see the patient(eg.review tests), obtaining and/or reviewing separately otained hiistory and counseling the patient
[2023-12-15 15:25] VITALS: BP 142/101; PULSE 78; RESP 18; TEMP 37; O2SAT 98
--- NOTE | 2023-12-15 17:34 | DSE_ITS ---
Date of service: 12/15/23 Time of Service: 17:34 DS: Diagnosis Discharge Diagnosis (1) Acute cholecystitis: Status: Acute (2) BMI 40.0-44.9, adult: Status: Acute Discharge Plan Disposition Patient Disposition: Home Condition: Improving Discharge Details Reason For Visit: Acute Cholecystitis Admit Date/Time: 12/12/23 21:40 Admit Provider: Leyla Schuler Attending Provider: Leyla Schuler Primary Care Provider: None,None Hospital Course Hospital Course: see adeendum Home Meds and New Rx's Prescriptions: New ciprofloxacin HCl [Cipro] 500 mg tablet 500 mg PO Q12H 4 Days Qty: 8 0RF Discharge Instructions Additional Instructions: -No driving for 1-2ays -[facility] Surgery Clinic: [phone]. The clinic is currently closed. You will need to call on Monday to make a clinic appointment. -Follow-up with Dr. Schuler/Lev Brooks next week. Lab work prior to the clinic appointment. -Low-fat diet. See below -Low-fat yogurt or Kefir daily while on antibiotics. - if you do not move your bowels daily take a dose of OTC Miralax -It is ok to shower. - You may find that your appetite is smaller. Eat 3-6 small meals throughout the day. It is important to drink lots of water after surgery, 6-10 glasses a day. -If you were given an incentive spirometry (breathing senior ios developer?), continue to do this 10x/hour while awake. -We do want you up walking, at least 5-6 times per day. This is very important to prevent pneumonia and blood clots. You can climb stairs, take them slowly. -You may find that you are very tired after after being in the hospital- this is normal. -For pain: Tylenol 1000 mg every 6 hours as needed OR ibuprofen 600 mg with food every 6 hours as needed for pain -Take the oral dose of Cipro antibiotics tonight at 8 PM. The hospital will give you a dose to take tonight. You can cigar packer and picker your prescription at [facility] in [facility] on Monday. Start your antibiotics on Monday a.m. The gallbladder collects bile, a fluid that is produced by the liver, and releases it when you eat to aid the breakdown and absorption of fat. Between meals, bile collects in the gallbladder and is concentrated. When the gallbladder is removed, bile is less concentrated and it drains continuously into the intestine. . ? Go easy on fat. Avoid high-fat foods, fried and greasy foods, and fatty sauces and gravies. Instead, choose nonfat or low-fat foods. Read labels and look for foods with 3 grams of fat or less a serving. Foods to Avoid High-fat foods include: ? Foods that are fried, like [place] fries and potato chips ? High-fat meats, such as guevara, bologna, sausage, ground beef, and ribs, pork products ? High-fat dairy products, such as cheese, ice cream, cream, whole milk, and sour cream ? Pizza ? Foods made with lard or butter ? Creamy soups or sauces ? Meat gravies ? Chocolate ? Oils, such as palm and coconut oil ? Skin of chicken or turkey ?? Nuts and nut butters ?? Avocadoes Stand Alone Forms: Nursing Discharge Form Referrals: Leyla Schuler, DO [OSTEOPATHIC DOCTOR] - (Please call Monday to make a follow up appointment! ) Activity:: see above Equipment/Supplies:: No Equipment Needed Diet:: low fat Discharge Orders Discharge Orders: Discharge Order (Routine); Ordered 12/15/23 Ordered By: Leyla Schuler DS: Summary Time Spent with Patient providing and/or coordinating discharge services: Less than 30 minutes Status at Discharge Functional status at discharge: independent ambulation Overall status at discharge: patient is progressing back to baseline Mental Status: mental status grossly normal Speech and Movement: speech and movement normal Mood: congruent mood Affect: normal affect Quality:SDOH Health Related Social Needs: No Data to Display Exam Psych Mental Status: mental status grossly normal Speech and Movement: speech and movement normal Mood: congruent mood Affect: normal affect DS: Data Vitals/I&O Vitals and I&O: Vital Signs Temperature 36.7 C 12/15/23 09:24 Temperature Source Tympanic 12/15/23 09:24 Pulse 82 12/15/23 09:24 Pulse Rhythm Regular 12/15/23 14:20 Respiratory Rate 17 12/15/23 09:24 Respiratory Effort Normal, Non-Labored 12/15/23 14:20 Respiratory Depth Normal 12/15/23 14:20 Respiratory Pattern Normal 12/15/23 14:20 Blood Pressure 147/106 H 12/15/23 09:24 Blood Pressure Mean 124 12/12/23 22:31 Blood Pressure Position Sitting 12/12/23 19:47 Pulse Oximetry 95 12/15/23 09:24 Oxygen Delivery Method Room Air 12/15/23 09:24 Oxygen Flow Rate 0 12/15/23 09:24 Pain Level 0 12/15/23 09:24 Comment 99.9 F 12/14/23 22:02 Intake & Output 12/14/23 12/15/23 12/15/23 23:59 11:59 23:59 Intake Total 2506.667 / 3970.667 514 / 624 110 / 624 Output Total 375 / 375 Balance 2131.667 / 3595.667 514 / 624 110 / 624 Intake: IV 1266.667 / 2730.667 514 / 624 110 / 624 Oral 1240 / 1240 Output: Urine 375 / 375 Other: Urine Color Light An Yellow Yellow Urine Appearance Clear Clear Clear Urine Odor Normal Voiding Methods Urinal Toilet Toilet Data Completed and Pending Labs on day of discharge: Labs from last 24 hours 12/15/23 06:35 WBC 9.91 RBC 5.56 Hgb 16.0 Hct 47.4 MCV 85 MCH 28.8 MCHC 33.8 RDW 13.6 Plt Count 287 MPV 10.9 Total Bilirubin 5.1 H Conjugated Bilirubin 3.7 H AST 169 H ALT 137 H Alkaline Phosphatase 144 H Total Protein 7.5 Albumin 2.8 L Preliminary micro results at discharge 12/12/23 21:18 Blood Culture - Preliminary Blood NO GROWTH 48 HOURS 12/12/23 20:15 Blood Culture - Preliminary Blood NO GROWTH 48 HOURS PFSH All Active Problems (Updated 12/15/23 @ 17:39 by Leyla Schuler DO) BMI 40.0-44.9, adult (Acute) Acute cholecystitis (Acute) Social History Smoking risk assessment performed?: No Housing: house Time Spent with Patient Time Spent with Patient: <45 minutes Time was spent: preparing to see the patient(eg.review tests), obtaining and/or reviewing separately otained hiistory, ordering medications,tests, procedures, referring, communicating with other health palliative care specialist, indepentently interpreting results, counseling the patient and care coordination
== END 2023-12-15 18:26 | disposition home or self-care (01) | DRG 446 ==
LOC: ER 22:01 → MS 22:40
PROVIDERS: Surgery; Admitting Provider Surgery; Emergency Provider Physician Assistant; Visit Provider Surgery
DX: K81.0 Acute cholecystitis (principal); R79.89 Other specified abnormal findings of blood chemistry; D72.829 Elevated white blood cell count, unspecified; R11.2 Nausea with vomiting, unspecified
CPT/HCPCS: 36415; 80048; 80053; 80076; 83690; 84145; 85027; 87040; 96365; 96375; 99285; J1650; 74177; 74181; 81003; 81015; 83605; 83735; 84484; 85025; 85610; 86140; J0131; J1885; J2270; J2405; J2543; J3475; J3490

== ENCOUNTER 2023-12-20 12:41 | Outpatient (CLI) | payer BC, SELFPAY ==
[2023-12-20 09:29] LABS: Abs Immature Grans 0.26 10^3/uL (0.0-0.06); Absolute Basophil Count 0.07 10^3/uL (0.0-0.2); Absolute Eosinophil Count 0.28 10^3/uL (0.0-0.7); Absolute Lymphocyte Count 2.05 10^3/uL (1.2-3.4); Absolute Monocyte Count 0.64 10^3/uL (0.1-0.8); Absolute Neutrophil Count 7.46 10^3/uL (1.2-6.7); Basophils % 0.7 %; Eosinophils % 2.6 %; HCT 46.2 % (40.0-50.0); HGB 15.4 g/dL (13.5-17.5); Immature Grans % 2.4 %; Lymphocytes % 19.1 %; MCH 28.7 pg (27.0-33.0); MCHC 33.3 % (32.0-36.0); MCV 86 fL (80-95); MPV 10.1 fL (8.0-11.0); Monocytes % 5.9 %; Neutrophils % 69.3 %; Platelet Count 468 10^3/uL (130-400); RBC 5.36 10^6/uL (4.36-5.78); RDW 13.6 % (11.8-14.1); RDW-SD 42.9 fL; WBC 10.76 10^3/uL (4.4-10.8)
[2023-12-20 09:59] LABS: ALT 133 U/L (16-63); AST 82 U/L (15-37); Albumin 3.3 g/dL (3.4-5.0); Alkaline Phosphatase 132 U/L (46-116); Anion Gap 10.7 mmol/L (3-11); BUN 14 mg/dL (7-18); Bilirubin, Total 1.6 mg/dL (0.2-1.0); C-Reactive Protein 1.45 mg/dL (<or=0.5); CO2 26.3 mmol/L (21.0-32.0); CREATININE 1.2 mg/dL (0.70-1.30); Calcium 8.9 mg/dL (8.5-10.1); Chloride 105 mmol/L (98-107); Glucose 121 mg/dL (74-106); Potassium 3.4 mmol/L (3.5-5.1); Sodium 142 mmol/L (136-145); Total Protein 8.1 g/dL (6.4-8.2)
[2023-12-20 10:00] LABS: Lipase 322 U/L (16-77)
== END 2023-12-20 12:42 | disposition home or self-care (01) ==
LOC: LBO 12:44
PROVIDERS: Visit Provider Surgery
DX: K81.0 Acute cholecystitis (principal)
CPT/HCPCS: 36415; 80053; 83690; 85025; 86140

== ENCOUNTER 2024-01-12 00:52 | Outpatient (CLI) | payer BC, SELFPAY ==
[2024-01-12 17:00] LABS: Lipase 84 U/L (16-77)
== END 2024-01-12 00:53 | disposition home or self-care (01) ==
LOC: LBO 00:52
PROVIDERS: Visit Provider Surgery
DX: K85.90 Acute pancreatitis without necrosis or infection, unspecified (principal)
CPT/HCPCS: 36415; 83690

== ENCOUNTER 2024-01-24 07:41 | Day surgery (SDC) | payer BC, SELFPAY ==
--- NOTE | 2024-01-23 16:43 | PDOC.DSDIS_ITS ---
Date of service: 01/24/24 Time of Service: 13:20 Discharge Plan Disposition Patient Disposition: Home Condition: Good Discharge Details Reason For Visit: Cholecystectomy Attending Provider: Axel Ohara Primary Care Provider: None,None Home Meds and New Rx's Prescriptions: Continued multivitamin Tablet 1 tab PO DAILY ferrous sulfate [iron] 325 mg (65 mg iron) tablet 325 mg PO DAILY Discharge Instructions Instructions: Cholecystectomy, Laparoscopic Surgery Additional Instructions: David, we were able to remove your gallbladder today just like we planned. There is quite a bit of inflammation from your previous cholecystitis, but ultimately, we got the gallbladder out, and hopefully you make a quick recovery. Like we talked about beforehand, he should be up and moving around a little bit more more each day. Keep the lifting less than 10 pounds, and call me if you need anything at all. Otherwise, see you in the office for your routine postoperative visit. 1. Resume all of your regular medications. 2. Alternate heating pads and ice packs as needed for pain 3. Alternate [id number] Tylenol and ibuprofen every 6 hours for the first 2 days. Then use as needed. Use tramadol for more severe pain. 4. Leave bandages in place for 24 hours, then remove. 5. Shower with warm soapy water. Pat dry. Use a bandaid if needed to protect your clothing. 6. No soaking or tub baths until I see you in the office. 7. No heavy lifting until I see you in the office. 8. Call the office (or go directly to the emergency room after hours) if you notice any of the following: Develop chills (warm to touch), or if you have a thermometer and your temperature is above 101 Difficulty breathing or difficultly swallowing Persistent vomiting Any bleeding ? exceeding one tablespoon 9. Call your physician if the site where your intravenous was started becomes red, swollen, painful, and warm to touch. Stand Alone Forms: Anesthesia Discharge Inst., Fede Woods (DSU) Referrals: Axel Ohara MD [ [facility] STAFF PHYSICIAN] - 02/06/24 9:00 am Activity:: Activity as Tolerated Remove Dressings/Wound Care:: 24 hours Shower/Bathe:: 24 hours Diet:: As Tolerated Discharge Orders Discharge Orders: Discharge Order (Routine); Ordered 01/23/24 Ordered By: Axel Ohara DS: Diagnosis Discharge Diagnosis (1) Acute cholecystitis: Status: Acute Asessment and Plan: Outpatient postoperative follow-up
--- NOTE | 2024-01-23 16:45 | ROE_ITS ---
Date of service: 01/24/24 Time of Service: 13:22 Operative Note Operative Note DATE OF PROCEDURE: 01/24/24 PRE-OP DIAGNOSIS: Cholecystitis PROCEDURE: Laparoscopic cholecystectomy SURGEON: Axel Ohara PODIATRIC ASSISTANT: Anahi Gamez ANESTHESIA TYPE: General LMA/ETT Refer to Anesthesia Record ESTIMATED BLOOD LOSS: 50 PATHOLOGY: other (Gallbladder) COMPLICATIONS: None Patient was transported to: PACU Patient's condition: stable Indications: Roberth is a 43-year-old male with a past history of acute cholecystitis that was initially treated nonoperatively. He is here for laparoscopic cholecystectomy for definitive treatment of biliary colic and gallstones Procedure Description: After satisfactory induction of general anesthesia, I prepped and draped the abdomen in usual fashion. Next, I began with a periumbilical incision. I dissected down to the fascia and elevated it with Mckenna clamps. I incised it sharply. Next, I passed a 12 mm operating port in the umbilical site. I secured it to the fascia with 0 Vicryl stitches. I then insufflated the peritoneal cavity. Next I inserted a 5 mm 30 degree scope and examined the underlying viscera. There was no evidence of injury created upon entry. I then placed the patient in some reverse Trendelenburg and left side down positioning. Then, with the assistance of the laparoscope, I used local anesthetic to anesthetize the midepigastric and 2 right upper quadrant port sites. Under the vision of the laparoscope, I passed 3 more 5 mm ports. I then grasped the gallbladder fundus and elevated cephalad. With the assistance of indocyanine green visualization, I began by dissecting the gallbladder infundibulum. I worked in a lateral to medial fashion. There was quite a bit of adhesions from his previous episodes of cholecystitis. Several dense adhesions required clipping and sharp division. Initially, it appeared that the cystic duct would be too big to divide with a small clip regenerator operator. Therefore, I upsized the mid epigastric port. However, with ongoing dissection, I was able to thin the cystic duct proper to a point where a 5 mm clip regenerator operator was appropriate. Once I skeletonized the cystic duct and cystic artery, with a satisfactory critical view of safety, I doubly clipped and divided them. I then used electrocautery t o dissect the gallbladder off the gallbladder fossa. There was a small amount of bleeding off the midportion of the gallbladder fossa along the posterior wall, that seem consistent with a small posterior branch of the cystic artery. This was clipped. I passed the gallbladder into an Endo Catch bag and removed it by way of the umbilical site. I examined the surgical field. It was irrigated. It was hemostatic. I then removed the 5 mm ports under the vision of the laparoscope. Finally, I removed the umbilical port site and closed the fascia with Vicryl stitches. Sites were irrigated, and the skin was closed with subcuticular stitches. Bandages were applied, patient was awakened from anesthesia, and transferred to the recovery unit.
--- NOTE | 2024-01-23 16:46 | W.PREOPHP ---
Assessment and Plan Assessment and plan (1) Acute cholecystitis: Status: Acute Assessment and plan: We reviewed the plan for laparoscopic cholecystectomy, what to expect in terms of the risks of the operation and the recovery. History of Present Illness History of Present Illness Chief Complaint: Cholecystitis Narrative: Roberth is a 43-year-old male was recently hospitalized with acute cholecystitis. He had favorable treatment to nonoperative management, and is here for cholecystectomy for definitive treatment of gallstones PFSH All Active Problems Pancreatitis (Chronic) BMI 40.0-44.9, adult (Acute) Acute cholecystitis (Acute) Social History Smoking/Tobacco Use Status: Never Smoking risk assessment performed?: Yes Alcohol Intake: current Alcohol Intake frequency: holidays/special occasions only Drug use: Never Substance use type: does not use Housing: house Do you feel safe at home: Yes Do you feel safe in your relationship?: Yes Meds Allergies and Home Medications Allergies Allergy/AdvReac Type Severity Reaction Status Date / Time No Known Drug Allergies Allergy Mild Other (See Verified 01/24/24 08:17 Comment) Home Medications Medication Instructions Recorded Confirmed Type multivitamin 1 tab PO DAILY 12/20/23 01/24/24 History ferrous sulfate 325 mg (65 mg 325 mg PO DAILY 01/23/24 01/24/24 History iron) tablet (iron) Exam Const General: cooperative, healthy appearing and not in acute distress Neck Neck: normal visual inspection, no lymphadenopathy and supple Resp Effort & Inspection: normal respiratory effort Auscultation: clear to auscultation bilaterally Cardio Jugular venous pressure: no JVD Rate: regular rate Rhythm: regular rhythm Heart Sounds: S1 normal and S2 normal GI Inspection: normal to inspection Palpation: soft, no guarding, no hernias and nontender Percussion: normal to percussion Auscultation: normal bowel sounds Neuro General: patient alert, patient awake and patient oriented x3 Psych Appearance: grossly normal
--- NOTE | 2024-01-23 18:57 | W.ANESPRE ---
General Info Date of Service Date Performed: 01/24/24 Height: 6 ft 3 in Weight: 139.253 kg Body Mass Index (BMI): 38.3 Surgical Procedure: Operation Date: 01/24/24 09:55 Proposed Procedure Side Surgeon p Cholecystectomy Laparoscopic Axel Ohara MD Meds Allergies and Home Medications Allergies Allergy/AdvReac Type Severity Reaction Status Date / Time No Known Drug Allergies Allergy Mild Other (See Verified 01/24/24 08:17 Comment) Home Medication Medication Instructions Recorded multivitamin 1 tab PO DAILY 12/20/23 ferrous sulfate 325 mg (65 mg 325 mg PO DAILY 01/23/24 iron) tablet (iron) Current Visit Medications: Current Medications Generic Name Dose Route Start Last Admin Trade Name Freq PRN Reason Stop Dose Admin Acetaminophen 1,000 mg 01/24/24 06:00 Acetaminophen 500 Mg Tab PO 01/24/24 23:59 PREOP LESLIE Celecoxib 200 mg 01/24/24 06:00 Celecoxib 200 Mg Cap PO 01/24/24 23:59 PREOP LESLIE Gabapentin 600 mg 01/24/24 06:00 Gabapentin 300 Mg Cap PO 01/24/24 23:59 PREOP LESLIE Hydromorphone HCl 0.2 mg 01/23/24 16:46 Hydromorphone 2 Mg/Ml Syr IVP 02/22/24 16:45 Q1H PRN PRN Ringer's Solution 1,000 mls @ 80 mls/hr 01/24/24 06:00 IV 01/24/24 23:59 INFUSION LESLIE Cefazolin Sodium/Dextrose 2 gm in 50 mls @ 100 mls/hr 01/24/24 06:00 Ancef Duplex IVPB 01/24/24 23:59 PREOP LESLIE IV Miscellaneous Supplies 1 each 01/24/24 06:00 Iv Access IV 01/24/24 23:59 DIRECTED LESLIE Indocyanine Green 5 mg 01/24/24 06:00 Indocyanine Green 25 Mg Vial IVP 01/24/24 23:59 DIRECTED LESLIE Sodium Chloride 0 ml 01/24/24 06:00 Normal Saline Flush 10 Ml Syr IV 01/24/24 23:59 PRN PRN Sodium Chloride 0 ml 01/24/24 06:00 Normal Saline 10 Ml Vial IJ 01/24/24 23:59 DIRECTED PRN Sterile Water 0 ml 01/24/24 06:00 Water,Injection,Sterile 10 Ml Vial IJ 01/24/24 23:59 DIRECTED PRN Tramadol HCl 50 mg 01/23/24 16:46 Tramadol 50 Mg Tab PO 02/22/24 16:45 Q6H PRN PRN Pain PFSH Active Problems Active Problems: Problem Status Onset Code Pancreatitis K85.90 BMI 40.0-44.9, adult Z68.41 Acute cholecystitis K81.0 Tobacco Smoking/Tobacco Use Status: Never Alcohol Alcohol Intake: current Alcohol intake frequency: holidays/special occasions only Substance Use Substance use: Never Substance use type: does not use Vital Signs and Lab Results Vital Signs Most Recent Vital Signs in EMR: Temp Pulse Resp BP Pulse Ox 36.4 C L 76 16 131/90 96 01/24/24 08:15 01/24/24 08:15 01/24/24 08:15 01/24/24 08:15 01/24/24 08:15 Lab Results Blood Type / Crossmatch: No Data to Display Complete Blood Count: No Data to Display Complete Metabolic Panel: No Data to Display Liver Function Panel: No Data to Display Coagulation Panel: No Data to Display Cardiac Panel: No Data to Display Arterial Blood Gas: No Data to Display Venous Blood Gas: No Data to Display Pancreas Panel: Lipase 84 U/L (16-77) H 01/12/24 15:49 Thyroid Panel: No Data to Display Infectious Disease: No Data to Display Blood Cultures: No Data to Display Toxicology Panel: No Data to Display Anesthesia Assessment and Plan Anesthesia History Personal History: No History of General Anesthesia Family History: No Family History of Anesthesia Complications Exercise Tolerance Exercise Tolerance: Metabolic Equivalents>4 Cardiac & Pulmonary Exam Cardiac Exam: Normal S1/S2 Heart Sounds Pulmonary Exam: Clear Bilateral Breath Sounds Implantable Cardiac Device Does patient have a Pacemaker or an ICD?: No Airway Exam Known Difficult Airway: No Mallampati Class: 4 Mouth Opening: Narrow (< 3cm) Thyromental Distance: Less than 3 cm Neck Range of Motion: Full ROM Neck Circumference: Thick Teeth Condition: Normal Dentition ASA Classification ASA Score: ASA 3 Emergency Case?: No NPO Status NPO Status: NPO Clears >2 hours, Solids >8 hours Anesthesia Plan Resuscitation Status: Full Code Anesthesia Technique: General Anesthesia Airway Planned: Endotracheal Tube Monitors Used: Standard Monitors Preoperative Comments:: 43 yo male for lap isael. Sig PMHx: denies major.
[2024-01-24] VITALS (19 sets, daily range): BP systolic 129–157; BP diastolic 88–103; PULSE 67–78; RESP 13–23; TEMP 36.4–36.6; O2SAT 96–100; BMI 38.3
[2024-01-24] MEDS: Celecoxib 200 MG CAP PO (08:32)
[2024-01-24] MEDS: Acetaminophen 500 MG TAB 1000 MG PO (08:33)
[2024-01-24] MEDS: Gabapentin 300 MG CAP 600 MG PO (08:33)
[2024-01-24] MEDS: Lactated Ringers 1,000 ML 80 ML IV (08:48)
[2024-01-24] MEDS: Indocyanine green 25 MG VIAL 5 MG IVP (08:51)
[2024-01-24] MEDS: Normal Saline Flush 10 ML SYR IV (08:52)
[2024-01-24] MEDS: ceFAZolin 3,000 MG in Normal Saline 100 ML 200 MG IVPB (09:58)
[2024-01-24] MEDS: Bupivacaine 0.25% Pres-Free W/EPI 30 ML VIAL (10:26)
--- NOTE | 2024-01-24 10:59 | GB_PTH ---
PATIENT: David Johnson LOC: [facility] U#:[id number] AGE/SX: 43/M ROOM: RE01/24/[address]: Axel Ohara MD : 1980 BED: DIS: 01/24/2024 SPEC #: [id number] RECD: 01/24/24 13:21 STATUS: REESE REQ #: [id number] LEXIS: 01/24/24 10:[address]: Axel Ohara DEPT: Surgical Specimen RECD BY: Orly Paez ENTERED: 01/24/24 13:22 SP TYPE: GB OTHR DR: None Tissues: 1 - GALLBLADDER Procedures: GROSS AND MICRO LEVEL 3 Comments: [id number]
--- NOTE | 2024-01-24 13:46 | W.ANESPOSTOP ---
Postoperative Evaluation Date, Time and Location Date Performed: 01/24/24 Time Performed: 13:46 Patient Location: PACU Vital Signs Most Recent Imported Vital Signs: Most Recent Vital Signs Temp Pulse Resp BP Pulse Ox 36.5 C 76 16 131/90 96 01/24/24 13:45 01/24/24 08:15 01/24/24 08:15 01/24/24 08:15 01/24/24 08:15 Pain Score Most Recent Pain Score: Most Recent Pain Score Pain Level 0 01/24/24 13:45 Assessment Mental Status: Arousable with meaningful communication Airway and Respiratory Function: Patent airway with normal (patient baseline) respiratory exam Cardiovascular Function: Hemodynamically Stable Hydration Status: Adequately Hydrated Nausea & Vomiting: No Nausea or Vomiting Pain: Pain is tolerable per patient Peripheral Nerve Block: Patient did not receive a nerve block
== END 2024-01-24 15:40 | disposition home or self-care (01) ==
LOC: SUR 07:42
PROVIDERS: Visit Provider Surgery
PROC: 0FT44ZZ Resection of Gallbladder, Percutaneous Endoscopic Approach (ICD-10-PCS; CPT 47562; principal; 2024-01-24 09:45)
DX: K80.00 Calculus of gallbladder with acute cholecystitis without obstruction (principal)
CPT/HCPCS: 47562; 88304; J0665; J0690; J1100; J1885; J2405; J2704; J3475

== ENCOUNTER 2024-04-26 19:32 | Outpatient (REF) | payer BC, SELFPAY ==
[2024-04-26 22:16] LABS: ALT 56 U/L (16-63); AST 33 U/L (15-37); Albumin 3.8 g/dL (3.4-5.0); Alkaline Phosphatase 82 U/L (46-116); Anion Gap 10.4 mmol/L (3-11); BUN 18 mg/dL (7-18); Bilirubin, Total 1.02 mg/dL (0.2-1.0); CO2 27.6 mmol/L (21.0-32.0); Calcium 9.2 mg/dL (8.5-10.1); Calculated LDL 111 mg/dL (<100); Chloride 104 mmol/L (98-107); Cholesterol 184 mg/dL (<200); Estimated GFR 94.59 (mL/min/1.73m2); Glucose 90 mg/dL (74-106); HDL Cholesterol 38 mg/dL (40-60); Sodium 142 mmol/L (136-145); Total Protein 7.4 g/dL (6.4-8.2); Triglyceride 178 mg/dL (<150)
[2024-04-26 22:30] LABS: Hemoglobin A1C 5.4 % (<5.7)
== END 2024-04-26 19:33 | disposition home or self-care (01) ==
LOC: NCHCN 19:32
PROVIDERS: PCP Family Medicine; Visit Provider Family Medicine
DX: E66.9 Obesity, unspecified (principal)
CPT/HCPCS: 80053; 80061; 83036

== ENCOUNTER 2024-09-20 09:49 | Day surgery (SDC) | payer BC, SELFPAY ==
--- NOTE | 2024-09-19 14:37 | W.ANESPRE ---
General Info Date of Service Date Performed: 09/20/24 Height: 6 ft 3 in Weight: 147.871 kg Body Mass Index (BMI): 40.7 Surgical Procedure: Operation Date: 09/20/24 11:35 Proposed Procedure Side Surgeon bj Ohara MD Meds Allergies and Home Medications Allergies Allergy/AdvReac Type Severity Reaction Status Date / Time No Known Drug Allergies Allergy Mild Other (See Verified 09/20/24 10:07 Comment) Home Medication ?Medication ?Instructions ?Recorded multivitamin 1 tab PO DAILY 12/20/23 ferrous sulfate 325 mg (65 mg 325 mg PO DAILY 01/23/24 iron) tablet (iron) Current Visit Medications: Current Medications Generic Name Dose Route Start Last Admin Trade Name Freq PRN Reason Stop Dose Admin Ringer's Solution 1,000 mls @ 80 mls/hr 09/20/24 06:00 IV 09/20/24 23:59 INFUSION LESLIE IV Miscellaneous Supplies 1 each 09/20/24 06:00 Iv Access IV 09/20/24 23:59 DIRECTED LESLIE Sodium Chloride 0 ml 09/20/24 06:00 Normal Saline Flush 10 Ml Syr IV 09/20/24 23:59 PRN PRN Sodium Chloride 0 ml 09/20/24 06:00 Normal Saline 10 Ml Vial IJ 09/20/24 23:59 DIRECTED PRN Sterile Water 0 ml 09/20/24 06:00 Water,Injection,Sterile 10 Ml Vial IJ 09/20/24 23:59 DIRECTED PRN PFSH Active Problems Active Problems: Problem Status Onset Code Otitis externa of right ear Acute H60.91 Elevated blood pressure reading without diagnosis of hypertension Acute R03.0 Snoring Acute R06.83 Atopic dermatitis Acute L20.9 Pancreatitis Chronic K85.90 BMI 40.0-44.9, adult Acute Z68.41 Acute cholecystitis Acute K81.0 Medical History Medical History Iron deficiency anemia Surgical History Surgical History History of laparoscopic cholecystectomy (~01/2024) Tobacco Smoking/Tobacco Use Status: Never Alcohol Alcohol Intake: current Alcohol intake frequency: holidays/special occasions only Substance Use Substance use: Never Substance use type: does not use Vital Signs and Lab Results Vital Signs Most Recent Vital Signs in EMR: Temp Pulse Resp BP Pulse Ox 36.5 C 78 20 145/98 H 96 09/20/24 09:53 09/20/24 09:53 09/20/24 09:53 09/20/24 09:53 09/20/24 09:53 Lab Results Blood Type / Crossmatch: No Data to Display Complete Blood Count: No Data to Display Complete Metabolic Panel: No Data to Display Liver Function Panel: No Data to Display Coagulation Panel: No Data to Display Cardiac Panel: No Data to Display Arterial Blood Gas: No Data to Display Venous Blood Gas: No Data to Display Pancreas Panel: No Data to Display Thyroid Panel: No Data to Display Infectious Disease: No Data to Display Blood Cultures: No Data to Display Toxicology Panel: No Data to Display Anesthesia Assessment and Plan Anesthesia History Personal History: No History of Anesthesia Complications Family History: No Family History of Anesthesia Complications Exercise Tolerance Exercise Tolerance: Metabolic Equivalents>4 Cardiac & Pulmonary Exam Cardiac Exam: Normal S1/S2 Heart Sounds Pulmonary Exam: Clear Bilateral Breath Sounds Implantable Cardiac Device Does patient have a Pacemaker or an ICD?: No Airway Exam Known Difficult Airway: No Mallampati Class: 4 Mouth Opening: Narrow (< 3cm) Thyromental Distance: Less than 3 cm Neck Range of Motion: Full ROM Neck Circumference: Thick Teeth Condition: Normal Dentition ASA Classification ASA Score: ASA 3 Emergency Case?: No NPO Status NPO Status: NPO Clears >2 hours, Solids >8 hours Anesthesia Plan Resuscitation Status: Full Code Anesthesia Technique: General Anesthesia Airway Planned: Natural Airway Monitors Used: Standard Monitors Preoperative Comments:: 43 yo male for colo. Sig PMHx: HTN, LANA. never smoker, occ EtOH. Previous Anes: - lap isael, difficult mask - slightly easier with paralytic, glide 3 grade 1
--- NOTE | 2024-09-19 19:20 | W.PM.DSUDISC ---
Date of service: 09/20/24 Discharge Plan Disposition Patient Disposition: Home Condition: Good Discharge Details Reason For Visit: screening colonoscopy Attending Provider: Axel Ohara Primary Care Provider: Eleanor Egan Home Meds and New Rx's Prescriptions: Continued multivitamin Tablet 1 tab PO DAILY ferrous sulfate [iron] 325 mg (65 mg iron) tablet 325 mg PO DAILY Discontinued bisacodyl [Dulcolax (bisacodyl)] 5 mg tablet,delayed release (DR/EC) 5 mg PO ONCE Qty: 4 0RF Rx Instructions: Take per colonoscopy instructions provided by ordering providers office polyethylene glycol 3350 17 gram/dose powder 17 g PO ONCE Qty: 238 0RF Rx Instructions: Take per colonoscopy instructions provided by ordering providers office Discharge Instructions Instructions: Colon polyps Additional Instructions: David, it was very nice seeing you today, and I hope you are comfortable through this procedure and that you make a quick recovery. Everything went very smoothly. Your prep was excellent and I could see everything fine. I did find and remove a tiny bit of tissue today that might be a polyp. However, this is extremely small, and that the size is very difficult to tell. Regardless, I will send this off to the pathologist for their review. If it turns out to be a real polyp, then we will use that information to guide the timing of your next colonoscopy. If it is normal tissue, then you will be good for 10 years. If you need anything right now, please do not hesitate to call, otherwise my office will be in touch once we have the results of the polyp report. 1. If tolerated, consume a soft, low fiber diet for 1-2 days. 2. Do not drive, drink alcohol, operate machinery, make critical decisions, or do activities that require coordination or balance for 24 hours. 3. Because air was put into your colon during the procedure, expelling air from your rectum (passing gas or farting) is normal. 4. You may not have a bowel movement for 1-3 days because of the colonoscopy prep. This is normal. 5. Go directly to the emergency room if you notice any of the following: Develop chills (warm to touch), or if you have a thermometer and your temperature is above 101 Difficulty breathing or difficultly swallowing Persistent vomiting Severe abdominal pain, other than gas cramps Severe chest pain Black, tarry stools Any bleeding ? exceeding one tablespoon 6. Call your physician if the site where your intravenous was started becomes red, swollen, painful, and warm to touch. 7. Your physician has reviewed your pre-procedure medications. Please continue to take those medications as previously ordered. You will be given specific information/education regarding any changes to your medications before leaving. Activity:: Activity as Tolerated Diet:: As Tolerated Discharge Orders Discharge Orders: Discharge Order (Routine); Ordered 09/19/24 Ordered By: Axel Ohara DS: Diagnosis Discharge Diagnosis (1) Encounter for screening colonoscopy: Status: Acute Asessment and Plan: Follow-up on polypectomy results
--- NOTE | 2024-09-19 19:21 | COLE_ITS ---
Date of service: 09/20/24 Time of Service: 12: Colonoscopy Report Date of procedure: 09/20/24 Pre-op diagnosis general: screening colonoscopy Post-op diagnosis procedure note: other (Colon polyp) Procedure: colonoscopy with polypectomy Surgeon: Axel Ohara Anesthesia Type: General:No Airway Estimated blood loss (mL): 5 Pathology: other (0.25 cm flat polyp at 20 cm) Complications: None Disposition: same day Indications: David is a 43 year old man who needs a screening colonoscopy Prep: Miralax/Dulcolax Procedure Start Time: 12:02 Procedure End Time: : Retraction Time: 15 Findings: 0.25 cm flat polyp at 20 cm Procedure Description: After the induction of anesthesia, and with David in left lateral decubitus position, I began by performing an external anorectal exam.? Perineum and skin were normal, as was the anal verge.? There was no evidence of external hemorrhoids.? Next, I performed a digital rectal exam.? I did not appreciate any abnormal findings.? Next, I advanced a colonoscope into the rectal vault.? I p erformed retroflexion.? I this appeared normal.? Using insufflation, I then advanced the colonoscope beyond the rectal folds and into the sigmoid colon before advancing towards the cecum.? The quality of the prep was excellent.? The scope was noted to be in the cecum by identification of the ileocecal valve and appendiceal orifice.? I then began withdrawing the colonoscope using repeated irrigation as necessary for full evaluation of the colonic mucosa. Around 20 cm from the anal verge I identified a 0.25 cm polyp. ?It appeared flat in character. ?I was able to remove this with a cold forcep polypectomy. ?I examined the site, and there was minimal bleeding. ?Once this was completed, I continued to withdraw the scope and examine the remainder of the colonic mucosa.?Once the scope was withdrawn to the level of the rectum, great care was taken to examine portions of the rectal folds.? Finally, the scope was withdrawn and the patient was brought to the same-day surgery recovery unit as the anesthetic wore off. ?The findings and instructions were shared with the patient prior to discharge. [place] Bowel Prep [place] Bowel Prep Right Colon: 3 Left Colon: 3 Transverse Colon: 3 Total Score: 9
[2024-09-20 09:53] VITALS: BP 145/98; PULSE 78; RESP 20; TEMP 36.5; O2SAT 96
[2024-09-20] MEDS: Lactated Ringers 1,000 ML 80 ML IV (10:18)
[2024-09-20 10:41] VITALS: BMI 40.7
--- NOTE | 2024-09-20 12:20 | BOWEL_PTH ---
PATIENT: David Johnson LOC: [facility] U#:[id number] AGE/SX: 43/M ROOM: RE09/20/[address]: Axel Ohara MD : 1980 BED: DIS: 09/20/2024 SPEC #: [id number] RECD: 09/20/24 13:16 STATUS: REESE REQ #: [id number] LEXIS: 09/20/24 12:[address]: Axel Ohara DEPT: Surgical Specimen RECD BY: Orly Paez ENTERED: 09/20/24 13:16 SP TYPE: Bowel OTHR DR: Eleanor Egan Tissues: 1 - BIOPSY BOWEL Procedures: GROSS AND MICRO LEVEL 4 Comments: [id number]
[2024-09-20 12:26] VITALS: BP 148/103; PULSE 95; RESP 18; TEMP 36.8; O2SAT 95
[2024-09-20 13:01] VITALS: BP 154/108; PULSE 75; RESP 18; TEMP 36.6; O2SAT 94
--- NOTE | 2024-09-20 16:35 | W.ANESPOSTOP ---
Postoperative Evaluation Date, Time and Location Date Performed: 09/20/24 Time Performed: 16:35 Patient Location: Day Surgery Unit Vital Signs Most Recent Imported Vital Signs: Most Recent Vital Signs Temp Pulse Resp BP Pulse Ox 36.6 C 75 18 154/108 H 94 09/20/24 13:01 09/20/24 13:01 09/20/24 13:01 09/20/24 13:01 09/20/24 13:01 Pain Score Most Recent Pain Score: Most Recent Pain Score Pain Level 0 09/20/24 13:01 Assessment Mental Status: Awake (Alert & Oriented to Patient Baseline) Airway and Respiratory Function: Patent airway with normal (patient baseline) respiratory exam Cardiovascular Function: Hemodynamically Stable Hydration Status: Adequately Hydrated Nausea & Vomiting: No Nausea or Vomiting Pain: Pt. Denies Any Pain Peripheral Nerve Block: Patient did not receive a nerve block Postoperative Comments:: Patient was seen earlier today by Marcelino Rocha and discharged home after.
== END 2024-09-20 13:15 | disposition home or self-care (01) ==
LOC: SUR 09:49
PROVIDERS: PCP Family Medicine; Visit Provider Surgery
PROC: 0DJD8ZZ Inspection of Lower Intestinal Tract, Via Natural or Artificial Opening Endoscopic (ICD-10-PCS; CPT 45378; principal; 2024-09-20 11:30)
DX: Z12.11 Encounter for screening for malignant neoplasm of colon (principal); K63.5 Polyp of colon
CPT/HCPCS: 45380; 88305; J2704

== ENCOUNTER 2025-04-28 16:13 | Outpatient (REF) | payer BC, SELFPAY ==
[2025-04-28 16:35] LABS: ALT 55 U/L (16-63); AST 33 U/L (15-37); Albumin 3.7 g/dL (3.4-5.0); Alkaline Phosphatase 77 U/L (46-116); Anion Gap 8.4 mmol/L (3-11); BUN 16 mg/dL (7-18); Bilirubin, Total 1.2 mg/dL (0.2-1.0); CO2 27.6 mmol/L (21.0-32.0); Calcium 9.3 mg/dL (8.5-10.1); Calculated LDL 112 mg/dL (<100); Chloride 105 mmol/L (98-107); Cholesterol 184 mg/dL (<200); Estimated GFR 94.00 (mL/min/1.73m2); Glucose 88 mg/dL (74-106); HDL Cholesterol 31 mg/dL (>or=40); Hemoglobin A1C 5.5 % (<5.7); Potassium 4.1 mmol/L (3.5-5.1); Sodium 141 mmol/L (136-145); Total Protein 7.3 g/dL (6.4-8.2); Triglyceride 207 mg/dL (<150)
== END 2025-04-28 16:14 | disposition home or self-care (01) ==
LOC: NCHCN 16:13
PROVIDERS: PCP Family Medicine; Visit Provider Family Medicine
DX: I10 Essential (primary) hypertension (principal); E66.9 Obesity, unspecified
CPT/HCPCS: 80053; 80061; 83036

== ENCOUNTER 2025-08-05 12:40 | Outpatient (REF) | payer BC, SELFPAY ==
--- NOTE | 2025-08-05 09:45 | SKI_PTH ---
PATIENT: David Johnson LOC: [facility] #:[id number] AGE/SX: 44/M ROOM: RE08/05/[address]: Eleanor Egan : 1980 BED: DIS: 08/05/2025 SPEC #: [id number] RECD: 08/05/25 18:21 STATUS: REESE MARTINEZ #: [id number] LEXIS: 08/05/25 09:[address]: Eleanor Egan DEPT: Surgical Specimen RECD BY: Orly Paez Tissues: 1 - SKIN BIOPSY(SHAVE/PUNCH) Procedures: SKIN LEVEL 4 Comments: [id number]
== END 2025-08-05 12:41 | disposition home or self-care (01) ==
LOC: NCHCN 12:40
PROVIDERS: PCP Family Medicine; Visit Provider Family Medicine
DX: D23.9 Other benign neoplasm of skin, unspecified (principal); L98.9 Disorder of the skin and subcutaneous tissue, unspecified
CPT/HCPCS: 88305